=== PATIENT | male | born 1965 | race Caucasian/White ===

== ENCOUNTER 2018-01-25 22:00 | Emergency (ER) | payer OTHER ==
[~2018-01-25] VITALS: Ht 185.4 cm; Wt 113.4 kg
[2018-01-25 22:00] VITALS: BP 97/72
[2018-01-25 22:16] LABS: HEMATOCRIT 42.9 % (42.0-52.0); HEMOGLOBIN 13.6 gm/dL (14.0-18.0); MCH 30.2 pg (26.0-34.0); MCHC 31.6 g/dL (28.0-37.0); MCV 95.3 fL (80.0-100.0); NUCLEATED RBCS 0 /100WBC; PLATELET COUNT* 325 thou/uL (150-400); RDW-CV 13.5 % (10.5-14.5); WBC 18.4 thou/uL (4.0-11.0)
[2018-01-25 22:24] LABS: INR 1.2; PROTIME 11.8 Seconds (9.20-11.50)
[2018-01-25 22:28] LABS: CALCIUM 7.9 mg/dL (8.5-10.1); CREATININE 1.2 mg/dL (0.6-1.3); POTASSIUM 2.7 mmol/L (3.5-5.1)
[2018-01-25 22:40] LABS: ALBUMIN 2.5 g/dL (3.4-5.0); TOTAL BILIRUBIN 0.4 mg/dL (<0.1-1.0); TOTAL PROTEIN 5.9 g/dL (6.4-8.2)
[2018-01-25 22:56] LABS: TROPONIN-I LEVEL 0.58 ng/mL (<0.06)
[2018-01-25 23:40] LABS: ABSOLUTE LYMPHOCYTES 11.2 thou/uL (0.8-5.3); ABSOLUTE MONOCYTES 1.5 thou/uL (0.0-1.2); ABSOLUTE NEUTROPHILS 5.7 thou/uL (1.6-8.1); ATYPICAL LYMPHS 2 %; PLATELET ESTIMATE ADEQUATE
[2018-01-25 23:41] LABS: ANISOCYTOSIS Occasional; CLUMPED PLTS FEW; LARGE PLATELETS OCCASIONAL; TOXIC GRANULATION 2+
== END 2018-01-25 22:30 ==
LOC: M.ERS 22:00
PROVIDERS: Emergency Medicine
DX: I46.9 Cardiac arrest, cause unspecified (principal)